=== PATIENT | male | born 1940 | race Two or more races ===

== ENCOUNTER 2020-08-04 18:49 | Inpatient (IN) | payer MEDICARE, OTHER ==
[~2020-08-04] VITALS: Ht 167.6 cm; Wt 81.0 kg
[2020-08-04] MEDS ORDERED: SODIUM CHLORIDE 0.9% 1,000 ML IV ONE (19:15)
[2020-08-04 20:22] LABS: Amphetamine Screen, Urine NEGATIVE (NEGATIVE); Barbiturate Scree,Urine NEGATIVE (NEGATIVE); Benzodiazephine Screen, Urine NEGATIVE (NEGATIVE); Cannabinoid Screen, Urine NEGATIVE (NEGATIVE); Cocaine Screen, Urine NEGATIVE (NEGATIVE); Opiate Scree,Urine NEGATIVE (NEGATIVE); Phencyclidine Screen, Urine NEGATIVE (NEGATIVE)
[2020-08-04 20:23] LABS: Basophils # (auto) 0.1 10 ^3/uL (0-0.2); Basophils % (auto) 0.3 % (0.0-2.0); Eosinophils # (auto) 0 10 ^3/uL (0-0.8); Hematocrit 40.8 % (41.0-53.0); Hemoglobin 13.8 g/dL (13.5-17.5); Lymphocytes # (auto) 0.5 10 ^3/uL (0.4-5.4); Lymphocytes % (auto) 2.9 % (10.0-50.0); Mean Corpuscular Hemoglobin 31.9 pg (28.0-32.0); Mean Corpuscular Volume 93.9 fL (80.0-100.0); Monocytes # (auto) 0.5 10 ^3/uL (0-1.3); Monocytes % (auto) 2.9 % (0.0-12.0); Neutrophils # (auto) 17.2 10 ^3/uL (1.6-8.6); Neutrophils % (auto) 93.9 % (37.0-80.0); Platelet Count (auto) 195 10^3/uL (140-450); Red Blood Cells 4.34 10^6/uL (4.5-5.90); White Blood Cell 18.3 10^3/uL (4.4-10.8)
[2020-08-04 20:39] LABS: Albumin 2.9 g/dL (3.4-5.0); Calcium 8.9 mg/dL (8.5-10.1); Potassium 3.8 mmol/L (3.5-5.1)
[2020-08-04 20:44] LABS: BUN/Creatinine Ratio 21.5; Bilirubin, Total 1.9 mg/dL (0.2-1.0); Total Protein 7.7 g/dL (6.4-8.2)
[2020-08-04 20:50] LABS: Urine Bacteria NONE SEEN /hpf (None Seen); Urine Blood 2+ /uL (Negative); Urine Hyaline Cast MANY /lpf (0 - 2); Urine Mucus FEW (None Seen); Urine Specific Gravity 1.032 (1.001-1.035); Urine WBC 1 /hpf (0 - 3)
[2020-08-04 21:52] VITALS: BP 111/16
[2020-08-04] MEDS ORDERED: VANCOMYCIN 1GM/250ML 250 ML IV ONE (22:00)
[2020-08-04] MEDS ORDERED: PIPERACILLIN-TAZOB 3.375GM 100 ML IV ONE (22:00)
[2020-08-04] MEDS ORDERED: RIVA10TA2 PO (22:32)
[2020-08-04] MEDS ORDERED: ATEN25TA PO (22:32)
[2020-08-04] MEDS ORDERED: LORA-154 PO (22:32)
[2020-08-04] MEDS ORDERED: AMLO-489 PO (22:32)
[2020-08-04] MEDS ORDERED: ATOR40TA52 PO (22:32)
[2020-08-04] MEDS ORDERED: MET25T PO (22:32)
[2020-08-04] MEDS ORDERED: BENZ100C97 PO (22:33)
[2020-08-04 22:55] LABS: INR 1.22 (0.9-1.15); Partial Thromboplastin Time 31.9 sec (23.0-31.2)
[2020-08-04 23:02] LABS: Lactic Acid w/Reflex 5.6 mmol/L (0.4-2.0)
[2020-08-05] VITALS (8 sets, daily range): BP systolic 100–157; BP diastolic 59–80
[2020-08-05] MEDS ORDERED: LORazepam 2MG/ML-1ML VIAL IV ONE ×2 (01:30→03:00)
[2020-08-05] MEDS ORDERED: ONDANSETRON HCL 4 MG/2 ML VIAL IV PRN (02:30)
[2020-08-05] MEDS ORDERED: MORPHINE SULF INJ 2 MG/ML SYRINGE 1ML IV PRN (02:30)
[2020-08-05] MEDS ORDERED: ALBUTEROL SULF HFA 90MCG INH 200DOSE IN PRN (02:30)
[2020-08-05] MEDS ORDERED: ACETAMINOPHEN 325 MG TAB PO PRN (02:30)
[2020-08-05] MEDS ORDERED: NITROGLYCERIN 0.4 MG SL TAB SL PRN (02:30)
[2020-08-05] MEDS: SODIUM CHLORIDE 0.9% 1,000 ML IV SCH ×2 (02:30→17:46)
[2020-08-05] MEDS ORDERED: VANCOMYCIN PER PHARMACY 0 MG IV SCH (02:30)
[2020-08-05] MEDS ORDERED: TEMAZEPAM 15 MG CAP PO PRN (02:30)
[2020-08-05] MEDS ORDERED: DIGOXIN (250MCG/ML) 2 ML AMPULE IV ONE (03:15)
[2020-08-05] MEDS ORDERED: SUCCINYLCHOLINE CHLORIDE 20 MG/ML 10ML VIAL IV ONE ×2 (03:18→05:30)
[2020-08-05] MEDS ORDERED: ETOMIDATE (2MG/ML) 20ML VIAL IV ONE ×2 (03:18→05:30)
[2020-08-05 03:23] LABS: Magnesium 2.4 mg/dL (1.6-2.6)
[2020-08-05] MEDS ORDERED: MIDAZOLAM DRIP 50 mg/50mL 50 ML IV ONE (03:24)
[2020-08-05] MEDS ORDERED: MIDAZOLAM DRIP 50 mg/50mL 50 ML IV SCH (03:30)
[2020-08-05] MEDS ORDERED: dilTIAZem 25 MG/5 ML VIAL IV ONE (03:30)
[2020-08-05 03:31] LABS: Lactate Dehydrogenase 686 U/L (87-241)
[2020-08-05 03:33] LABS: CRP High Sensitivity > 19.0 mg/dL (< 0.3)
[2020-08-05] MEDS: MIDAZOLAM DRIP 50 mg/50mL 50 ML IV SCH ×4 (03:40→15:56)
[2020-08-05] MEDS: dilTIAZem 125mg/125ml BAG KIT 125 ML IV SCH (03:40)
[2020-08-05] MEDS ORDERED: PROPOFOL 100 ML IV ONE (03:51)
[2020-08-05] MEDS: PROPOFOL 100 ML IV SCH (04:00)
[2020-08-05] MEDS ORDERED: NOREPINEPHRINE 8 MG/250ML KIT 250 ML IV ONE (04:30)
[2020-08-05] MEDS: NOREPINEPHRINE 8 MG/250ML KIT 250 ML IV SCH ×2 (04:30→12:14)
[2020-08-05] MEDS: fentaNYL Drip 2500mCg/250mlNS 250 ML IV SCH (05:55)
[2020-08-05] MEDS ORDERED: ACETAMINOPHEN 650 MG RECT SUPP PR PRN (06:15)
[2020-08-05] MEDS ORDERED: ACETAMINOPHEN 650 mg PER 20.3 mL UD PO PRN (07:30)
[2020-08-05] MEDS: DexAMETHasone SOD PHOS 10MG/1ML VIAL INJ IV SCH (08:16)
[2020-08-05] MEDS: CHOLECALCIFEROL (VITD3) 2,000 UNIT CAP PO SCH (08:16)
[2020-08-05] MEDS: AZITHROMYCIN 500MG/ 250ML 250 ML IV SCH (08:16)
[2020-08-05] MEDS: ZINC SULFATE 220mg CAP or TAB PO SCH (08:16)
[2020-08-05] MEDS: ASCORBIC ACID 1,000 MG TAB PO SCH (08:16)
[2020-08-05] MEDS ORDERED: PANTOPRAZOLE 40 MG TAB PO SCH (10:00)
[2020-08-05] MEDS ORDERED: diphenhdrAMINE HCL 50 MG/1 ML VL IV PRN (10:00)
[2020-08-05 10:40] LABS: Basophils # (auto) 0 10 ^3/uL (0-0.2); Basophils % (auto) 0.1 % (0.0-2.0); Eosinophils # (auto) 0 10 ^3/uL (0-0.8); Hematocrit 35.9 % (41.0-53.0); Hemoglobin 11.9 g/dL (13.5-17.5); Lymphocytes # (auto) 0.7 10 ^3/uL (0.4-5.4); Lymphocytes % (auto) 3.7 % (10.0-50.0); Mean Corpuscular Hemoglobin 31.2 pg (28.0-32.0); Mean Corpuscular Hgb Conc. 33.2 g/dL (32.0-36.0); Monocytes # (auto) 0.6 10 ^3/uL (0-1.3); Neutrophils # (auto) 17.4 10 ^3/uL (1.6-8.6); Neutrophils % (auto) 93.2 % (37.0-80.0); Platelet Count (auto) 229 10^3/uL (140-450); Red Blood Cells 3.82 10^6/uL (4.5-5.90); Red Cell Distribution Width 14.1 % (11.8-14.3); White Blood Cell 18.7 10^3/uL (4.4-10.8)
[2020-08-05 10:53] LABS: Albumin 2.3 g/dL (3.4-5.0); Calcium 7.7 mg/dL (8.5-10.1); Potassium 3.8 mmol/L (3.5-5.1)
[2020-08-05 10:58] LABS: BUN/Creatinine Ratio 27.8; Total Protein 6.6 g/dL (6.4-8.2)
[2020-08-05] MEDS ORDERED: FAMOTIDINE INJECTION 40 MG in SODIUM CHL 0.9% 100 ML IV ONE (11:30)
[2020-08-05 11:56] LABS: INR 1.19 (0.9-1.15); Partial Thromboplastin Time 34.7 sec (23.0-31.2)
[2020-08-05] MEDS ORDERED: VANCOMYCIN 1GM/250ML 250 ML IV ONE (12:00)
[2020-08-05] MEDS ORDERED: RIVAROXABAN 10 MG TAB PO SCH (18:00)
[2020-08-05] MEDS ORDERED: FAMOTIDINE (10MG/ML) 2ML VL IV SCH (22:00)
[2020-08-05] MEDS: ATORVASTATIN 20 MG TAB PO SCH (22:00)
[2020-08-05] MEDS: FAMOTIDINE INJECTION 40 MG in SODIUM CHL 0.9% 100 ML IV SCH (22:59)
[2020-08-06] MEDS: dilTIAZem 125mg/125ml BAG KIT 125 ML IV SCH (01:41)
[2020-08-06 02:30] VITALS: BP 108/75
[2020-08-06] MEDS ORDERED: ACETAMINOPHEN 650 MG RECT SUPP PR ONE (03:30)
[2020-08-06] MEDS: PROPOFOL 100 ML IV SCH (03:30)
[2020-08-06] MEDS: fentaNYL Drip 2500mCg/250mlNS 250 ML IV SCH ×2 (05:05→08:03)
[2020-08-06 06:30] VITALS: BP 105/65
[2020-08-06] MEDS: DexAMETHasone SOD PHOS 10MG/1ML VIAL INJ IV SCH (07:46)
[2020-08-06] MEDS: AZITHROMYCIN 500MG/ 250ML 250 ML IV SCH (07:47)
[2020-08-06] MEDS: FAMOTIDINE INJECTION 40 MG in SODIUM CHL 0.9% 100 ML IV SCH ×2 (07:47→23:38)
[2020-08-06] MEDS: CHOLECALCIFEROL (VITD3) 2,000 UNIT CAP PO SCH (07:47)
[2020-08-06] MEDS: SODIUM CHLORIDE 0.9% 1,000 ML IV SCH (07:47)
[2020-08-06] MEDS: ASCORBIC ACID 1,000 MG TAB PO SCH (07:47)
[2020-08-06] MEDS: ZINC SULFATE 220mg CAP or TAB PO SCH (07:47)
[2020-08-06 07:55] LABS: Basophils # (auto) 0 10 ^3/uL (0-0.2); Basophils % (auto) 0.1 % (0.0-2.0); Eosinophils # (auto) 0 10 ^3/uL (0-0.8); Hematocrit 32.9 % (41.0-53.0); Lymphocytes # (auto) 0.6 10 ^3/uL (0.4-5.4); Lymphocytes % (auto) 3.4 % (10.0-50.0); Mean Corpuscular Hemoglobin 31.5 pg (28.0-32.0); Mean Corpuscular Hgb Conc. 33.3 g/dL (32.0-36.0); Mean Corpuscular Volume 94.5 fL (80.0-100.0); Monocytes # (auto) 0.8 10 ^3/uL (0-1.3); Monocytes % (auto) 4.6 % (0.0-12.0); Neutrophils # (auto) 16.3 10 ^3/uL (1.6-8.6); Neutrophils % (auto) 91.9 % (37.0-80.0); Nucleated Red Blood Cells % 0.1 %; Platelet Count (auto) 211 10^3/uL (140-450); Red Blood Cells 3.48 10^6/uL (4.5-5.90); Red Cell Distribution Width 14.4 % (11.8-14.3); White Blood Cell 17.8 10^3/uL (4.4-10.8)
[2020-08-06] MEDS: MIDAZOLAM DRIP 50 mg/50mL 50 ML IV SCH ×3 (08:03→18:42)
[2020-08-06 08:13] LABS: Potassium 4.4 mmol/L (3.5-5.1)
[2020-08-06 08:25] LABS: Albumin 2.3 g/dL (3.4-5.0); BUN/Creatinine Ratio 30.6; Bilirubin, Total 0.8 mg/dL (0.2-1.0); Calcium 8.1 mg/dL (8.5-10.1); Total Protein 6.7 g/dL (6.4-8.2)
[2020-08-06] MEDS ORDERED: REMDESIVIR PER PHARMACY 0 ML IV SCH (10:30)
[2020-08-06 12:06] VITALS: BP 135/72
[2020-08-06] MEDS ORDERED: VANCOMYCIN 1GM/250ML 250 ML IV ONE (13:00)
[2020-08-06] MEDS ORDERED: REMDESIVIR 200 MG in NS 210ml LOADING DOSE ADULT IV ONE (15:00)
[2020-08-06 16:00] VITALS: BP 116/61
[2020-08-06] MEDS: ALBUMIN 25% 100 ML IV SCH ×2 (16:18→21:55)
[2020-08-06] MEDS: NOREPINEPHRINE 8 MG/250ML KIT 250 ML IV SCH (16:47)
[2020-08-06 18:05] VITALS: BP 124/67
[2020-08-06] MEDS: ATORVASTATIN 20 MG TAB PO SCH (22:00)
[2020-08-06 22:10] VITALS: BP 120/68
[2020-08-07 01:50] VITALS: BP 129/60
[2020-08-07] MEDS: PROPOFOL 100 ML IV SCH (03:30)
[2020-08-07] MEDS: ALBUMIN 25% 100 ML IV SCH (05:54)
[2020-08-07 06:33] VITALS: BP 114/69
[2020-08-07 08:09] LABS: Potassium 4.8 mmol/L (3.5-5.1)
[2020-08-07 08:20] LABS: BUN/Creatinine Ratio 31.9; Bilirubin, Total 0.6 mg/dL (0.2-1.0); Calcium 8.1 mg/dL (8.5-10.1); Total Protein 6.6 g/dL (6.4-8.2)
[2020-08-07] MEDS: ZINC SULFATE 220mg CAP or TAB PO SCH (10:00)
[2020-08-07] MEDS: FAMOTIDINE INJECTION 40 MG in SODIUM CHL 0.9% 100 ML IV SCH ×2 (10:00→22:48)
[2020-08-07] MEDS: ASCORBIC ACID 1,000 MG TAB PO SCH (10:00)
[2020-08-07] MEDS: CHOLECALCIFEROL (VITD3) 2,000 UNIT CAP PO SCH (10:00)
[2020-08-07] MEDS: DexAMETHasone SOD PHOS 10MG/1ML VIAL INJ IV SCH (10:00)
[2020-08-07] MEDS: ENOXAPARIN SOD 30 MG/0.3 ML SYRINGE SC SCH (10:00)
[2020-08-07] MEDS: AZITHROMYCIN 500MG/ 250ML 250 ML IV SCH (10:00)
[2020-08-07 10:53] VITALS: BP 105/69
[2020-08-07 13:49] VITALS: BP 101/65
[2020-08-07] MEDS: REMDESIVIR 100mg 100 MG in SODIUM CHL 0.9% 230 ML IV SCH (15:00)
[2020-08-07] MEDS: ceFAZolin 1GM/50ML 50 ML IV SCH ×2 (15:45→22:35)
[2020-08-07 18:53] VITALS: BP 100/64
[2020-08-07] MEDS: ATORVASTATIN 20 MG TAB PO SCH (22:00)
[2020-08-07] MEDS ORDERED: FAMOTIDINE (10MG/ML) 2ML VL IV ONE (22:42)
[2020-08-07 22:58] VITALS: BP 110/75
[2020-08-08 02:44] VITALS: BP 105/64
[2020-08-08] MEDS: PROPOFOL 100 ML IV SCH (03:30)
[2020-08-08] MEDS: NOREPINEPHRINE 8 MG/250ML KIT 250 ML IV SCH (04:30)
[2020-08-08] MEDS: MIDAZOLAM DRIP 50 mg/50mL 50 ML IV SCH ×3 (04:41→14:33)
[2020-08-08] MEDS: fentaNYL Drip 2500mCg/250mlNS 250 ML IV SCH ×2 (05:00→14:33)
[2020-08-08] MEDS: ceFAZolin 1GM/50ML 50 ML IV SCH ×3 (06:55→21:07)
[2020-08-08 07:00] VITALS: BP 122/76
[2020-08-08] MEDS: FAMOTIDINE INJECTION 40 MG in SODIUM CHL 0.9% 100 ML IV SCH ×2 (08:18→21:08)
[2020-08-08] MEDS: ZINC SULFATE 220mg CAP or TAB PO SCH (08:18)
[2020-08-08] MEDS: ASCORBIC ACID 1,000 MG TAB PO SCH (08:18)
[2020-08-08] MEDS: CHOLECALCIFEROL (VITD3) 2,000 UNIT CAP PO SCH (08:18)
[2020-08-08] MEDS: DexAMETHasone SOD PHOS 10MG/1ML VIAL INJ IV SCH (08:18)
[2020-08-08] MEDS: ENOXAPARIN SOD 30 MG/0.3 ML SYRINGE SC SCH (08:18)
[2020-08-08] MEDS: AZITHROMYCIN 500MG/ 250ML 250 ML IV SCH (08:18)
[2020-08-08 08:59] LABS: Basophils # (auto) 0 10 ^3/uL (0-0.2); Basophils % (auto) 0.1 % (0.0-2.0); Eosinophils # (auto) 0 10 ^3/uL (0-0.8); Hematocrit 35.6 % (41.0-53.0); Hemoglobin 11.6 g/dL (13.5-17.5); Lymphocytes # (auto) 0.6 10 ^3/uL (0.4-5.4); Lymphocytes % (auto) 4.5 % (10.0-50.0); Mean Corpuscular Hemoglobin 31.1 pg (28.0-32.0); Mean Corpuscular Hgb Conc. 32.6 g/dL (32.0-36.0); Mean Corpuscular Volume 95.3 fL (80.0-100.0); Monocytes # (auto) 0.8 10 ^3/uL (0-1.3); Monocytes % (auto) 6.3 % (0.0-12.0); Neutrophils % (auto) 89.1 % (37.0-80.0); Nucleated Red Blood Cells % 0.7 %; Platelet Count (auto) 209 10^3/uL (140-450); Red Blood Cells 3.74 10^6/uL (4.5-5.90); Red Cell Distribution Width 14.2 % (11.8-14.3); White Blood Cell 12.4 10^3/uL (4.4-10.8)
[2020-08-08 09:22] LABS: Potassium 4.5 mmol/L (3.5-5.1)
[2020-08-08 09:36] LABS: Albumin 3.3 g/dL (3.4-5.0); BUN/Creatinine Ratio 25.3; Total Protein 6.6 g/dL (6.4-8.2)
[2020-08-08 11:08] LABS: Calcium 8.3 mg/dL (8.5-10.1)
[2020-08-08 13:24] VITALS: BP 108/60
[2020-08-08] MEDS: REMDESIVIR 100mg 100 MG in SODIUM CHL 0.9% 230 ML IV SCH (15:29)
[2020-08-08 18:50] VITALS: BP 108/56
[2020-08-08] MEDS ORDERED: FAMOTIDINE (10MG/ML) 2ML VL IV ONE (21:03)
[2020-08-08] MEDS: ATORVASTATIN 20 MG TAB PO SCH (21:07)
[2020-08-08 22:50] VITALS: BP 116/54
[2020-08-09 02:00] VITALS: BP 104/68
[2020-08-09 06:10] VITALS: BP 114/60
[2020-08-09] MEDS: DexAMETHasone SOD PHOS 10MG/1ML VIAL INJ IV SCH (08:40)
[2020-08-09] MEDS: ASCORBIC ACID 1,000 MG TAB PO SCH (08:40)
[2020-08-09] MEDS: AZITHROMYCIN 500MG/ 250ML 250 ML IV SCH (08:41)
[2020-08-09] MEDS: ZINC SULFATE 220mg CAP or TAB PO SCH (08:41)
[2020-08-09] MEDS: ENOXAPARIN SOD 30 MG/0.3 ML SYRINGE SC SCH (08:41)
[2020-08-09] MEDS: CHOLECALCIFEROL (VITD3) 2,000 UNIT CAP PO SCH (09:16)
[2020-08-09] MEDS: MIDAZOLAM DRIP 50 mg/50mL 50 ML IV SCH ×3 (09:17→18:46)
[2020-08-09 09:19] LABS: Basophils # (auto) 0 10 ^3/uL (0-0.2); Basophils % (auto) 0.1 % (0.0-2.0); Eosinophils # (auto) 0 10 ^3/uL (0-0.8); Eosinophils % (auto) 0.2 % (0.0-7.0); Hematocrit 34.8 % (41.0-53.0); Hemoglobin 11.4 g/dL (13.5-17.5); Lymphocytes # (auto) 0.2 10 ^3/uL (0.4-5.4); Lymphocytes % (auto) 2.5 % (10.0-50.0); Mean Corpuscular Hemoglobin 31.1 pg (28.0-32.0); Mean Corpuscular Hgb Conc. 32.7 g/dL (32.0-36.0); Mean Corpuscular Volume 95.3 fL (80.0-100.0); Monocytes # (auto) 0.5 10 ^3/uL (0-1.3); Neutrophils # (auto) 7.3 10 ^3/uL (1.6-8.6); Neutrophils % (auto) 91.2 % (37.0-80.0); Nucleated Red Blood Cells % 0.3 %; Platelet Count (auto) 159 10^3/uL (140-450); Red Blood Cells 3.65 10^6/uL (4.5-5.90); Red Cell Distribution Width 14.2 % (11.8-14.3)
[2020-08-09] MEDS: ceFAZolin 1GM/50ML 50 ML IV SCH ×3 (09:32→22:00)
[2020-08-09] MEDS: FAMOTIDINE (10MG/ML) 2ML VL IV SCH (09:33)
[2020-08-09 09:56] LABS: INR 1.33 (0.9-1.15)
[2020-08-09] MEDS ORDERED: FAMOTIDINE (10MG/ML) 2ML VL IV SCH (10:00)
[2020-08-09 10:31] LABS: Potassium 5.2 mmol/L (3.5-5.1)
[2020-08-09 11:40] LABS: BUN/Creatinine Ratio 43.5; Bilirubin, Total 0.5 mg/dL (0.2-1.0); CRP High Sensitivity 4.59 mg/dL (< 0.3); Calcium 8.4 mg/dL (8.5-10.1); Magnesium 3.3 mg/dL (1.6-2.6); Phosphorus 4.7 mg/dL (2.5-4.90); Total Protein 6.5 g/dL (6.4-8.2)
[2020-08-09] MEDS ORDERED: SOD CHL 0.45% 1,000 ML IV ONE (12:15)
[2020-08-09] MEDS ORDERED: SODIUM ZIRCONIUM CYCL 10 GM PAK PO ONE (12:15)
[2020-08-09] MEDS: FREE WATER GT SCH ×3 (12:42→22:24)
[2020-08-09] MEDS ORDERED: DEXTROSE (50%) 50ML SYRG IV PRN (12:45)
[2020-08-09 13:50] VITALS: BP 108/64
[2020-08-09] MEDS: fentaNYL Drip 2500mCg/250mlNS 250 ML IV SCH (14:17)
[2020-08-09] MEDS: REMDESIVIR 100mg 100 MG in SODIUM CHL 0.9% 230 ML IV SCH (15:19)
[2020-08-09] MEDS: InsuLIN REG 1unit/0.01ml Soln (100units/ml) SC SCH ×2 (17:29→23:15)
[2020-08-09] MEDS: ACCU-CHEK COMFORT CURVE STRIP VI SCH (17:35)
[2020-08-09 19:36] VITALS: BP 127/65
[2020-08-09] MEDS: ATORVASTATIN 20 MG TAB PO SCH (22:00)
[2020-08-09 22:50] VITALS: BP 123/68
[2020-08-10] VITALS (7 sets, daily range): BP systolic 115–148; BP diastolic 60–79
[2020-08-10] MEDS: FREE WATER GT SCH ×6 (02:00→21:07)
[2020-08-10] MEDS: ceFAZolin 1GM/50ML 50 ML IV SCH ×3 (05:42→21:07)
[2020-08-10] MEDS: InsuLIN REG 1unit/0.01ml Soln (100units/ml) SC SCH ×4 (05:43→23:28)
[2020-08-10] MEDS: ACCU-CHEK COMFORT CURVE STRIP VI SCH ×5 (05:43→23:28)
[2020-08-10 07:41] LABS: Potassium 4.9 mmol/L (3.5-5.1)
[2020-08-10 07:52] LABS: Albumin 2.4 g/dL (3.4-5.0); BUN/Creatinine Ratio 47.9; Bilirubin, Total 0.5 mg/dL (0.2-1.0); Calcium 7.9 mg/dL (8.5-10.1); Total Protein 5.9 g/dL (6.4-8.2)
[2020-08-10] MEDS: ZINC SULFATE 220mg CAP or TAB PO SCH (08:38)
[2020-08-10] MEDS: FAMOTIDINE (10MG/ML) 2ML VL IV SCH (08:38)
[2020-08-10] MEDS: CHOLECALCIFEROL (VITD3) 2,000 UNIT CAP PO SCH (08:38)
[2020-08-10] MEDS: ASCORBIC ACID 1,000 MG TAB PO SCH (08:38)
[2020-08-10] MEDS: ENOXAPARIN SOD 30 MG/0.3 ML SYRINGE SC SCH (09:48)
[2020-08-10] MEDS ORDERED: FUROSEMIDE 40 MG/4 ML VIAL IV ONE (12:45)
[2020-08-10] MEDS ORDERED: MIDAZOLAM DRIP 50 mg/50mL 50 ML IV ONE (12:54)
[2020-08-10] MEDS: ALBUMIN 25% 100 ML IV SCH ×2 (12:59→21:07)
[2020-08-10] MEDS: MIDAZOLAM DRIP 50 mg/50mL 50 ML IV SCH ×2 (12:59→22:44)
[2020-08-10] MEDS: REMDESIVIR 100mg 100 MG in SODIUM CHL 0.9% 230 ML IV SCH (15:26)
[2020-08-10] MEDS: fentaNYL Drip 2500mCg/250mlNS 250 ML IV SCH (16:40)
[2020-08-10] MEDS: ATORVASTATIN 20 MG TAB PO SCH (21:07)
[2020-08-11] VITALS (35 sets, daily range): BP systolic 106–199; BP diastolic 55–88
[2020-08-11] MEDS: FREE WATER GT SCH ×4 (02:02→14:00)
[2020-08-11] MEDS: InsuLIN REG 1unit/0.01ml Soln (100units/ml) SC SCH ×4 (06:00→23:50)
[2020-08-11] MEDS: ACCU-CHEK COMFORT CURVE STRIP VI SCH ×4 (06:15→23:51)
[2020-08-11] MEDS: ceFAZolin 1GM/50ML 50 ML IV SCH ×3 (06:26→22:00)
[2020-08-11] MEDS: ALBUMIN 25% 100 ML IV SCH (06:59)
[2020-08-11 07:24] LABS: Basophils # (auto) 0 10 ^3/uL (0-0.2); Basophils % (auto) 0.1 % (0.0-2.0); Eosinophils # (auto) 0 10 ^3/uL (0-0.8); Eosinophils % (auto) 0.1 % (0.0-7.0); Hematocrit 28.9 % (41.0-53.0); Lymphocytes # (auto) 0.2 10 ^3/uL (0.4-5.4); Lymphocytes % (auto) 2.3 % (10.0-50.0); Mean Corpuscular Hemoglobin 32.2 pg (28.0-32.0); Mean Corpuscular Hgb Conc. 34.5 g/dL (32.0-36.0); Mean Corpuscular Volume 93.4 fL (80.0-100.0); Monocytes # (auto) 0.3 10 ^3/uL (0-1.3); Monocytes % (auto) 2.7 % (0.0-12.0); Neutrophils # (auto) 9.9 10 ^3/uL (1.6-8.6); Neutrophils % (auto) 94.8 % (37.0-80.0); Nucleated Red Blood Cells % 0.2 %; Platelet Count (auto) 177 10^3/uL (140-450); Red Cell Distribution Width 13.5 % (11.8-14.3); White Blood Cell 10.5 10^3/uL (4.4-10.8)
[2020-08-11 07:48] LABS: Calcium 7.9 mg/dL (8.5-10.1); Potassium 4.1 mmol/L (3.5-5.1)
[2020-08-11 07:50] LABS: BUN/Creatinine Ratio 47.1
[2020-08-11] MEDS: ZINC SULFATE 220mg CAP or TAB PO SCH (10:00)
[2020-08-11] MEDS: CHOLECALCIFEROL (VITD3) 2,000 UNIT CAP PO SCH (10:00)
[2020-08-11] MEDS: ASCORBIC ACID 1,000 MG TAB PO SCH (10:00)
[2020-08-11] MEDS ORDERED: ACETAMINOPHEN 650 MG RECT SUPP PR ONE (11:59)
[2020-08-11] MEDS ORDERED: ACETAMINOPHEN 650 MG RECT SUPP PR PRN (12:00)
[2020-08-11] MEDS ORDERED: LABETALOL HCL 5 MG/ML 4ML SYRINGE IV PRN ×2 (16:30)
[2020-08-11] MEDS: MIDAZOLAM DRIP 50 mg/50mL 50 ML IV SCH ×2 (16:47→22:30)
[2020-08-12] VITALS (97 sets, daily range): BP systolic 81–139; BP diastolic 48–81
[2020-08-12] MEDS: MIDAZOLAM DRIP 50 mg/50mL 50 ML IV SCH ×5 (02:01→20:58)
[2020-08-12 05:02] LABS: Basophils # (auto) 0 10 ^3/uL (0-0.2); Basophils % (auto) 0.2 % (0.0-2.0); Eosinophils # (auto) 0 10 ^3/uL (0-0.8); Eosinophils % (auto) 0.3 % (0.0-7.0); Hematocrit 29.3 % (41.0-53.0); Hemoglobin 10.2 g/dL (13.5-17.5); Lymphocytes # (auto) 0.2 10 ^3/uL (0.4-5.4); Lymphocytes % (auto) 2.1 % (10.0-50.0); Mean Corpuscular Hemoglobin 32.9 pg (28.0-32.0); Mean Corpuscular Hgb Conc. 34.9 g/dL (32.0-36.0); Mean Corpuscular Volume 94.3 fL (80.0-100.0); Monocytes # (auto) 0.1 10 ^3/uL (0-1.3); Monocytes % (auto) 1.3 % (0.0-12.0); Neutrophils # (auto) 10.5 10 ^3/uL (1.6-8.6); Neutrophils % (auto) 96.1 % (37.0-80.0); Nucleated Red Blood Cells % 0.1 %; Platelet Count (auto) 141 10^3/uL (140-450); Red Cell Distribution Width 14.2 % (11.8-14.3); White Blood Cell 10.9 10^3/uL (4.4-10.8)
[2020-08-12 05:33] LABS: BUN/Creatinine Ratio 45.1
[2020-08-12] MEDS: fentaNYL Drip 2500mCg/250mlNS 250 ML IV SCH (05:55)
[2020-08-12] MEDS: ACCU-CHEK COMFORT CURVE STRIP VI SCH ×4 (05:56→21:48)
[2020-08-12] MEDS: InsuLIN REG 1unit/0.01ml Soln (100units/ml) SC SCH ×4 (05:56→21:47)
[2020-08-12] MEDS: ceFAZolin 1GM/50ML 50 ML IV SCH ×3 (05:56→20:57)
[2020-08-12] MEDS: ASCORBIC ACID 1,000 MG TAB PO SCH (09:37)
[2020-08-12] MEDS: FAMOTIDINE (10MG/ML) 2ML VL IV SCH (09:37)
[2020-08-12] MEDS: ZINC SULFATE 220mg CAP or TAB PO SCH (09:37)
[2020-08-12] MEDS: CHOLECALCIFEROL (VITD3) 2,000 UNIT CAP PO SCH (09:38)
[2020-08-12] MEDS ORDERED: PROPOFOL 100 ML IV ONE (12:47)
[2020-08-12] MEDS: FREE WATER GT SCH ×3 (13:53→20:57)
[2020-08-12] MEDS ORDERED: diphenhdrAMINE HCL 50 MG/1 ML VL IV ONE (14:30)
[2020-08-12] MEDS ORDERED: methylPREDNISolone SOD SUCC 40 MG/ML VL IV ONE (14:30)
[2020-08-12] MEDS ORDERED: ACETAMINOPHEN 650 mg PER 20.3 mL UD PO ONE (14:30)
[2020-08-12] MEDS ORDERED: TOCILIZUMAB 400 MG in SODIUM CHL 0.9% 80 ML IV ONE (15:00)
[2020-08-12] MEDS ORDERED: NOREPINEPHRINE 8 MG/250ML KIT 250 ML IV ONE (17:26)
[2020-08-12] MEDS: NOREPINEPHRINE 8 MG/250ML KIT 250 ML IV SCH (18:00)
[2020-08-13] VITALS (97 sets, daily range): BP systolic 98–133; BP diastolic 42–83
[2020-08-13] MEDS: FREE WATER GT SCH ×6 (02:00→21:03)
[2020-08-13 05:33] LABS: Basophils # (auto) 0 10 ^3/uL (0-0.2); Basophils % (auto) 0.2 % (0.0-2.0); Eosinophils # (auto) 0 10 ^3/uL (0-0.8); Eosinophils % (auto) 0.2 % (0.0-7.0); Hematocrit 29.2 % (41.0-53.0); Hemoglobin 10.3 g/dL (13.5-17.5); Lymphocytes # (auto) 0.2 10 ^3/uL (0.4-5.4); Lymphocytes % (auto) 2.7 % (10.0-50.0); Mean Corpuscular Hemoglobin 33.4 pg (28.0-32.0); Mean Corpuscular Hgb Conc. 35.2 g/dL (32.0-36.0); Mean Corpuscular Volume 94.9 fL (80.0-100.0); Monocytes # (auto) 0.1 10 ^3/uL (0-1.3); Monocytes % (auto) 1.5 % (0.0-12.0); Neutrophils # (auto) 6.5 10 ^3/uL (1.6-8.6); Neutrophils % (auto) 95.4 % (37.0-80.0); Platelet Count (auto) 212 10^3/uL (140-450); Red Blood Cells 3.07 10^6/uL (4.5-5.90); Red Cell Distribution Width 14.3 % (11.8-14.3); White Blood Cell 6.8 10^3/uL (4.4-10.8)
[2020-08-13 05:53] LABS: Potassium 4.3 mmol/L (3.5-5.1)
[2020-08-13 06:00] LABS: BUN/Creatinine Ratio 39.9
[2020-08-13] MEDS: InsuLIN REG 1unit/0.01ml Soln (100units/ml) SC SCH ×4 (06:00→23:33)
[2020-08-13] MEDS: ACCU-CHEK COMFORT CURVE STRIP VI SCH ×4 (06:00→23:33)
[2020-08-13] MEDS: ceFAZolin 1GM/50ML 50 ML IV SCH ×3 (06:00→21:03)
[2020-08-13] MEDS: fentaNYL Drip 2500mCg/250mlNS 250 ML IV SCH ×2 (06:50→18:44)
[2020-08-13] MEDS: MIDAZOLAM DRIP 50 mg/50mL 50 ML IV SCH ×4 (07:09→23:33)
[2020-08-13] MEDS: CHOLECALCIFEROL (VITD3) 2,000 UNIT CAP PO SCH (10:00)
[2020-08-13] MEDS: FAMOTIDINE (10MG/ML) 2ML VL IV SCH (10:04)
[2020-08-13] MEDS: ZINC SULFATE 220mg CAP or TAB PO SCH (10:04)
[2020-08-13] MEDS: ASCORBIC ACID 1,000 MG TAB PO SCH (10:05)
[2020-08-13] MEDS ORDERED: methylPREDNISolone SOD SUCC 40 MG/ML VL IV ONE (10:30)
[2020-08-13] MEDS ORDERED: diphenhdrAMINE HCL 50 MG/1 ML VL IV ONE (10:30)
[2020-08-13] MEDS ORDERED: ACETAMINOPHEN 650 mg PER 20.3 mL UD PO ONE (10:30)
[2020-08-13] MEDS ORDERED: TOCILIZUMAB 400 MG in SODIUM CHL 0.9% 80 ML IV ONE (11:00)
[2020-08-13] MEDS: NOREPINEPHRINE 8 MG/250ML KIT 250 ML IV SCH (21:03)
[2020-08-14] VITALS (96 sets, daily range): BP systolic 109–144; BP diastolic 63–86
[2020-08-14] MEDS: FREE WATER GT SCH ×6 (02:00→22:00)
[2020-08-14] MEDS: MIDAZOLAM DRIP 50 mg/50mL 50 ML IV SCH ×3 (04:30→15:11)
[2020-08-14 05:49] LABS: Basophils # (auto) 0 10 ^3/uL (0-0.2); Basophils % (auto) 0.3 % (0.0-2.0); Eosinophils # (auto) 0 10 ^3/uL (0-0.8); Hemoglobin 10.2 g/dL (13.5-17.5); Lymphocytes # (auto) 0.2 10 ^3/uL (0.4-5.4); Lymphocytes % (auto) 1.8 % (10.0-50.0); Mean Corpuscular Volume 94.2 fL (80.0-100.0); Monocytes # (auto) 0.4 10 ^3/uL (0-1.3); Monocytes % (auto) 3.8 % (0.0-12.0); Neutrophils # (auto) 8.9 10 ^3/uL (1.6-8.6); Neutrophils % (auto) 94.1 % (37.0-80.0); Platelet Count (auto) 176 10^3/uL (140-450); Red Blood Cells 3.19 10^6/uL (4.5-5.90); Red Cell Distribution Width 14.5 % (11.8-14.3); White Blood Cell 9.5 10^3/uL (4.4-10.8)
[2020-08-14] MEDS: ACCU-CHEK COMFORT CURVE STRIP VI SCH ×3 (06:00→18:00)
[2020-08-14] MEDS: InsuLIN REG 1unit/0.01ml Soln (100units/ml) SC SCH ×3 (06:00→18:35)
[2020-08-14] MEDS: ceFAZolin 1GM/50ML 50 ML IV SCH ×3 (06:14→22:00)
[2020-08-14 06:18] LABS: Calcium 7.7 mg/dL (8.5-10.1); Potassium 4.1 mmol/L (3.5-5.1)
[2020-08-14] MEDS: fentaNYL Drip 2500mCg/250mlNS 250 ML IV SCH (07:38)
[2020-08-14] MEDS: CHOLECALCIFEROL (VITD3) 2,000 UNIT CAP PO SCH (10:00)
[2020-08-14] MEDS: FAMOTIDINE (10MG/ML) 2ML VL IV SCH (10:04)
[2020-08-14] MEDS: ZINC SULFATE 220mg CAP or TAB PO SCH (10:04)
[2020-08-14] MEDS: ASCORBIC ACID 1,000 MG TAB PO SCH (10:05)
[2020-08-14] MEDS ORDERED: ENOXAPARIN SOD 40 MG/0.4 ML SYRINGE SC ONE (10:30)
[2020-08-14] MEDS ORDERED: Jevity 1.2 Cal/Fiber 1 Liter GT SCH (10:30)
[2020-08-14] MEDS ORDERED: CHOLECALCIFEROL (VITD3) 1,000UNIT=25mCg TAB PO ONE (11:15)
[2020-08-14] MEDS: METOCLOPRAMIDE HCL 5MG/ml INJ 2ml VIAL IV SCH ×2 (13:37→22:00)
[2020-08-15] VITALS (47 sets, daily range): BP systolic 81–138; BP diastolic 47–82
[2020-08-15] MEDS: NOREPINEPHRINE 8 MG/250ML KIT 250 ML IV SCH ×2 (00:01→17:44)
[2020-08-15] MEDS: FREE WATER GT SCH ×6 (02:00→21:10)
[2020-08-15] MEDS: InsuLIN REG 1unit/0.01ml Soln (100units/ml) SC SCH ×4 (06:00→17:45)
[2020-08-15] MEDS: METOCLOPRAMIDE HCL 5MG/ml INJ 2ml VIAL IV SCH ×3 (06:00→21:15)
[2020-08-15] MEDS: ACCU-CHEK COMFORT CURVE STRIP VI SCH ×4 (06:00→17:46)
[2020-08-15] MEDS: ceFAZolin 1GM/50ML 50 ML IV SCH ×3 (06:00→21:15)
[2020-08-15 07:09] LABS: Hematocrit 31.4 % (41.0-53.0); Hemoglobin 10.6 g/dL (13.5-17.5); Mean Corpuscular Hemoglobin 32.1 pg (28.0-32.0); Mean Corpuscular Hgb Conc. 33.8 g/dL (32.0-36.0); Mean Corpuscular Volume 94.8 fL (80.0-100.0); Platelet Count (auto) 168 10^3/uL (140-450); Red Blood Cells 3.31 10^6/uL (4.5-5.90); Red Cell Distribution Width 14.6 % (11.8-14.3); White Blood Cell 8.4 10^3/uL (4.4-10.8)
[2020-08-15 07:11] LABS: Basophils % (manual) 0 (0.0-2.0); Blast Cells 0; Eosinophils % (manual) 0 (0-7); Metamyelocytes % 0; Myelocytes % 0; Promyelocytes % 0; Reactive Lymphocytes 0
[2020-08-15 07:14] LABS: BUN/Creatinine Ratio 45.7; Calcium 7.6 mg/dL (8.5-10.1)
[2020-08-15] MEDS: MIDAZOLAM DRIP 50 mg/50mL 50 ML IV SCH ×2 (07:15→12:00)
[2020-08-15] MEDS: ZINC SULFATE 220mg CAP or TAB PO SCH (10:29)
[2020-08-15] MEDS: FAMOTIDINE (10MG/ML) 2ML VL IV SCH (10:29)
[2020-08-15] MEDS: ENOXAPARIN SOD 40 MG/0.4 ML SYRINGE SC SCH (10:30)
[2020-08-15] MEDS: CHOLECALCIFEROL (VITD3) 1,000UNIT=25mCg TAB PO SCH (10:30)
[2020-08-15] MEDS: ASCORBIC ACID 1,000 MG TAB PO SCH (10:30)
[2020-08-15 11:51] LABS: Band Neutrophils % (manual) 3
[2020-08-15 11:52] LABS: Lymphocytes % (manual) 3 (10.0-50.0); Monocytes % (manual) 6 (0-12)
[2020-08-15] MEDS ORDERED: METOPROLOL TARTRATE 25 MG TAB PO ONE (12:15)
[2020-08-15] MEDS: METOPROLOL TARTRATE 25 MG TAB PO SCH ×2 (21:15→22:15)
[2020-08-15] MEDS ORDERED: ROCURONIUM 10MG/ML 10ML VIAL IV ONE (23:42)
[2020-08-16] VITALS (42 sets, daily range): BP systolic 67–134; BP diastolic 41–78
[2020-08-16] MEDS: ACCU-CHEK COMFORT CURVE STRIP VI SCH ×5 (00:21→23:55)
[2020-08-16] MEDS: FREE WATER GT SCH ×6 (00:56→22:00)
[2020-08-16] MEDS: fentaNYL Drip 2500mCg/250mlNS 250 ML IV SCH ×2 (04:24→08:38)
[2020-08-16] MEDS: ceFAZolin 1GM/50ML 50 ML IV SCH ×3 (05:15→22:24)
[2020-08-16] MEDS: METOCLOPRAMIDE HCL 5MG/ml INJ 2ml VIAL IV SCH ×3 (05:16→22:24)
[2020-08-16] MEDS: InsuLIN REG 1unit/0.01ml Soln (100units/ml) SC SCH ×5 (06:18→23:54)
[2020-08-16] MEDS: MIDAZOLAM DRIP 50 mg/50mL 50 ML IV SCH ×3 (08:38→17:56)
[2020-08-16] MEDS: levoFLOXacin 500MG 100 ML IV SCH (10:28)
[2020-08-16] MEDS: ASCORBIC ACID 1,000 MG TAB PO SCH (10:29)
[2020-08-16] MEDS: FAMOTIDINE (10MG/ML) 2ML VL IV SCH (10:29)
[2020-08-16] MEDS: CHOLECALCIFEROL (VITD3) 1,000UNIT=25mCg TAB PO SCH (10:29)
[2020-08-16] MEDS: ZINC SULFATE 220mg CAP or TAB PO SCH (10:29)
[2020-08-16] MEDS: ENOXAPARIN SOD 40 MG/0.4 ML SYRINGE SC SCH (10:30)
[2020-08-16 10:34] LABS: Hematocrit 31.9 % (41.0-53.0); Hemoglobin 10.5 g/dL (13.5-17.5); Mean Corpuscular Hgb Conc. 32.9 g/dL (32.0-36.0); Mean Corpuscular Volume 94.3 fL (80.0-100.0); Platelet Count (auto) 187 10^3/uL (140-450); Red Blood Cells 3.38 10^6/uL (4.5-5.90); Red Cell Distribution Width 14.7 % (11.8-14.3)
[2020-08-16 10:48] LABS: White Blood Cell 31.6 10^3/uL (4.4-10.8)
[2020-08-16 10:50] LABS: Basophils % (manual) 0 (0.0-2.0); Blast Cells 0; Eosinophils % (manual) 0 (0-7); Monocytes % (manual) 0 (0-12); Promyelocytes % 0; Reactive Lymphocytes 0
[2020-08-16 12:06] LABS: Band Neutrophils % (manual) 50; Lymphocytes % (manual) 2 (10.0-50.0); Metamyelocytes % 7; Myelocytes % 3
[2020-08-16] MEDS: NOREPINEPHRINE 8 MG/250ML KIT 250 ML IV SCH (17:56)
[2020-08-16] MEDS: METOPROLOL TARTRATE 25 MG TAB PO SCH (22:24)
[2020-08-17] VITALS (45 sets, daily range): BP systolic 101–129; BP diastolic 47–77
[2020-08-17] MEDS: FREE WATER GT SCH ×7 (02:00→23:30)
[2020-08-17 04:53] LABS: Basophils # (auto) 0 10 ^3/uL (0-0.2); Basophils % (auto) 0.1 % (0.0-2.0); Eosinophils # (auto) 0.1 10 ^3/uL (0-0.8); Eosinophils % (auto) 0.5 % (0.0-7.0); Hematocrit 30.1 % (41.0-53.0); Lymphocytes # (auto) 0.5 10 ^3/uL (0.4-5.4); Lymphocytes % (auto) 2.3 % (10.0-50.0); Mean Corpuscular Hemoglobin 31.6 pg (28.0-32.0); Mean Corpuscular Hgb Conc. 33.1 g/dL (32.0-36.0); Mean Corpuscular Volume 95.4 fL (80.0-100.0); Monocytes # (auto) 0.6 10 ^3/uL (0-1.3); Monocytes % (auto) 2.7 % (0.0-12.0); Neutrophils % (auto) 94.4 % (37.0-80.0); Platelet Count (auto) 167 10^3/uL (140-450); Red Blood Cells 3.16 10^6/uL (4.5-5.90); Red Cell Distribution Width 14.9 % (11.8-14.3); White Blood Cell 22.3 10^3/uL (4.4-10.8)
[2020-08-17] MEDS: InsuLIN REG 1unit/0.01ml Soln (100units/ml) SC SCH ×5 (06:00→23:33)
[2020-08-17] MEDS: ceFAZolin 1GM/50ML 50 ML IV SCH ×2 (06:02→14:05)
[2020-08-17] MEDS: METOCLOPRAMIDE HCL 5MG/ml INJ 2ml VIAL IV SCH ×3 (06:02→21:38)
[2020-08-17] MEDS: ACCU-CHEK COMFORT CURVE STRIP VI SCH ×4 (06:03→23:30)
[2020-08-17] MEDS: MIDAZOLAM DRIP 50 mg/50mL 50 ML IV SCH ×4 (07:23→18:59)
[2020-08-17] MEDS: FAMOTIDINE (10MG/ML) 2ML VL IV SCH (09:50)
[2020-08-17] MEDS: levoFLOXacin 500MG 100 ML IV SCH (09:51)
[2020-08-17] MEDS: ZINC SULFATE 220mg CAP or TAB PO SCH (09:51)
[2020-08-17] MEDS: CHOLECALCIFEROL (VITD3) 1,000UNIT=25mCg TAB PO SCH (09:54)
[2020-08-17] MEDS: METOPROLOL TARTRATE 25 MG TAB PO SCH ×2 (09:54→21:37)
[2020-08-17] MEDS: ASCORBIC ACID 1,000 MG TAB PO SCH (09:54)
[2020-08-17] MEDS: ENOXAPARIN SOD 40 MG/0.4 ML SYRINGE SC SCH (09:55)
[2020-08-17] MEDS: NOREPINEPHRINE 8 MG/250ML KIT 250 ML IV SCH (10:30)
[2020-08-17] MEDS: fentaNYL Drip 2500mCg/250mlNS 250 ML IV SCH ×2 (10:42→10:52)
[2020-08-17 14:00] LABS: BUN/Creatinine Ratio 40.6; Calcium 7.9 mg/dL (8.5-10.1); Potassium 4.1 mmol/L (3.5-5.1)
[2020-08-18] VITALS (27 sets, daily range): BP systolic 77–132; BP diastolic 43–84
[2020-08-18 04:45] LABS: Basophils # (auto) 0 10 ^3/uL (0-0.2); Basophils % (auto) 0.2 % (0.0-2.0); Eosinophils # (auto) 0.1 10 ^3/uL (0-0.8); Eosinophils % (auto) 0.6 % (0.0-7.0); Hematocrit 30.3 % (41.0-53.0); Hemoglobin 10.3 g/dL (13.5-17.5); Lymphocytes # (auto) 0.3 10 ^3/uL (0.4-5.4); Lymphocytes % (auto) 1.6 % (10.0-50.0); Mean Corpuscular Hemoglobin 32.2 pg (28.0-32.0); Mean Corpuscular Hgb Conc. 33.9 g/dL (32.0-36.0); Monocytes # (auto) 0.6 10 ^3/uL (0-1.3); Monocytes % (auto) 3.4 % (0.0-12.0); Neutrophils # (auto) 15.6 10 ^3/uL (1.6-8.6); Neutrophils % (auto) 94.2 % (37.0-80.0); Platelet Count (auto) 169 10^3/uL (140-450); Red Blood Cells 3.19 10^6/uL (4.5-5.90); Red Cell Distribution Width 15.1 % (11.8-14.3); White Blood Cell 16.6 10^3/uL (4.4-10.8)
[2020-08-18 05:03] LABS: Potassium 4.1 mmol/L (3.5-5.1)
[2020-08-18 05:12] LABS: Albumin 2.1 g/dL (3.4-5.0); BUN/Creatinine Ratio 37.6; Bilirubin, Total 2.4 mg/dL (0.2-1.0); Calcium 7.7 mg/dL (8.5-10.1); Total Protein 5.4 g/dL (6.4-8.2)
[2020-08-18] MEDS: FREE WATER GT SCH (05:17)
[2020-08-18] MEDS: METOCLOPRAMIDE HCL 5MG/ml INJ 2ml VIAL IV SCH (05:17)
[2020-08-18] MEDS: InsuLIN REG 1unit/0.01ml Soln (100units/ml) SC SCH (05:40)
[2020-08-18] MEDS: ACCU-CHEK COMFORT CURVE STRIP VI SCH (05:41)
[2020-08-18] MEDS: MIDAZOLAM DRIP 50 mg/50mL 50 ML IV SCH ×2 (09:10→11:25)
[2020-08-18] MEDS: ZINC SULFATE 220mg CAP or TAB PO SCH (10:00)
[2020-08-18] MEDS ORDERED: ENOXAPARIN SOD 40 MG/0.4 ML SYRINGE SC SCH (10:00)
[2020-08-18] MEDS: FAMOTIDINE (10MG/ML) 2ML VL IV SCH (10:00)
[2020-08-18] MEDS ORDERED: DOXYCYCLINE 100MG/250ML 250 ML IV SCH (10:00)
[2020-08-18] MEDS: METOPROLOL TARTRATE 25 MG TAB PO SCH (10:02)
[2020-08-18] MEDS: CHOLECALCIFEROL (VITD3) 1,000UNIT=25mCg TAB PO SCH (10:03)
[2020-08-18] MEDS: ASCORBIC ACID 1,000 MG TAB PO SCH (10:03)
[2020-08-18] MEDS: ENOXAPARIN SOD 40 MG/0.4 ML SYRINGE SC SCH (10:04)
[2020-08-18] MEDS ORDERED: MORPHINE SULF INJ 2 MG/ML SYRINGE 1ML IV PRN (11:45)
[2020-08-18] MEDS ORDERED: LORazepam 2MG/ML-1ML VIAL IV PRN (11:45)
[2020-08-18] MEDS ORDERED: ETOMIDATE (2MG/ML) 20ML VIAL IV ONE (12:28)
== END 2020-08-18 21:33 | DRG 720 ==
LOC: EDBD 18:49 → ER 18:53 → TELE 18:54 → ICU WEST 08-11 15:00
PROVIDERS: ADMIT Nurse Practitioner; ATTEND Internal Medicine
PROC: 5A09457 Assistance with Respiratory Ventilation, 24-96 Consecutive Hours, Continuous Positive Airway Pressure (ICD-10-PCS; 2020-08-04)
PROC: 5A1955Z Respiratory Ventilation, Greater than 96 Consecutive Hours (ICD-10-PCS; 2020-08-05)
PROC: 0BH17EZ Insertion of Endotracheal Airway into Trachea, Via Natural or Artificial Opening (ICD-10-PCS; 2020-08-05)
PROC: XW13325 Transfusion of Convalescent Plasma (Nonautologous) into Peripheral Vein, Percutaneous Approach, New Technology Group 5 (ICD-10-PCS; 2020-08-05)
PROC: 06HY33Z Insertion of Infusion Device into Lower Vein, Percutaneous Approach (ICD-10-PCS; 2020-08-05)
PROC: XW033E5 Introduction of Remdesivir Anti-infective into Peripheral Vein, Percutaneous Approach, New Technology Group 5 (ICD-10-PCS; principal; 2020-08-06)
PROC: XW033H5 Introduction of Tocilizumab into Peripheral Vein, Percutaneous Approach, New Technology Group 5 (ICD-10-PCS; 2020-08-12)
DX: A41.89 Other specified sepsis (principal); U07.1 COVID-19; J12.82 Pneumonia due to coronavirus disease 2019; J15.211 Pneumonia due to Methicillin susceptible Staphylococcus aureus; J80 Acute respiratory distress syndrome; Z51.5 Encounter for palliative care; Z66 Do not resuscitate; I50.33 Acute on chronic diastolic (congestive) heart failure; R65.21 Severe sepsis with septic shock; D68.69 Other thrombophilia; N17.0 Acute kidney failure with tubular necrosis; E43 Unspecified severe protein-calorie malnutrition; E87.0 Hyperosmolality and hypernatremia; E78.5 Hyperlipidemia, unspecified; I13.0 Hypertensive heart and chronic kidney disease with heart failure and stage 1 through stage 4 chronic kidney disease, or unspecified chronic kidney disease; K92.2 Gastrointestinal hemorrhage, unspecified; Z79.01 Long term (current) use of anticoagulants; R74.8 Abnormal levels of other serum enzymes; I48.20 Chronic atrial fibrillation, unspecified; D89.839 Cytokine release syndrome, grade unspecified; N18.32 Chronic kidney disease, stage 3b
CPT/HCPCS: 36415; 36600; 70450; 71045; 76705; 80048; 80053; 80202; 80307; 80320; 81001; 82140; 82306; 82550; 82728; 82805; 82962; 83036; 83605; 83615; 83735; 83880; 84100; 84132; 84443; 84484; 85007; 85025; 85027; 85379; 85384; 85610; 85730; 86141; 86850; 86900; 86901; 87040; 87070; 87077; 87081; 87086; 87186; 87205; 87426; 93005; 93970; 94002; 94003; 94660; 96361; 96365; 96367; 99291; G0378; J0330; J0690; J1100; J1956; J2250; J2405; J2543; J2704; J3490; J7042; P9047